=== PATIENT | female | born 1945 | race Caucasian/White ===

== ENCOUNTER → 2016-12-17 | Outpatient (CLI) | payer BC ==
--- NOTE | 2016-12-17 15:58 | MAMMOGRAPHY REPORT ---
BILATERAL DIGITAL SCREENING MAMMOGRAM WITH CAD: 12/17/2016 CLINICAL HISTORY: Routine screening. Patient has no complaints. TECHNIQUE: Bilateral CC and MLO views were obtained. Current study was also evaluated with a Compute r Aided Detection (CAD) system. COMPARISON: Comparison is made to exams dated: 12/05/2015 mammogram, 11/30/2014 mammogram, 11/29/2013 jules mogram, 11/04/2012 mammogram, 11/04/2011 mammogram, and 11/01/2010 mammogram - [facility] . BREAST COMPOSITION: There are scattered areas of fibroglandular density in both breasts. FINDINGS: A linear scar marker overlies the medial right breast. There are minimal vascular calcific ations bilaterally. No suspicious mass, architectural distortion or cluster of microcalcifications i s seen. IMPRESSION: ACR BI-RADS CATEGORY 1: NEGATIVE There is no mammographic evidence of malignancy. A 1 year screening mammogram is recommended. The pa tient will receive written notification of the results. Approximately 10% of breast cancers are not detected with mammography. A negative mammographic report should not delay biopsy if a clinically suggestive mass is present. Odalis Chamberlain M.D. ay/:12/17/2016 14:36:26 Reactor Service Operator: Sanjuana Mccormick, [facility] letter sent: Normal 1/2 BI-RADS Code: ACR BI-RADS Category 1: Negative
== END | disposition home or self-care (01) ==
LOC: C.MAMM 13:53
PROVIDERS: ATTEND Obstetrics & Gynecology
DX: Z12.31 Encounter for screening mammogram for malignant neoplasm of breast (principal)

== ENCOUNTER → 2017-12-19 | Outpatient (CLI) | payer BC ==
--- NOTE | 2017-12-22 07:43 | MAMMOGRAPHY REPORT ---
BILATERAL DIGITAL SCREENING MAMMOGRAM TOMOSYNTHESIS WITH CAD: 12/19/2017 CLINICAL HISTORY: Routine screening. Patient has no complaints. TECHNIQUE: The study was acquired using full field digital technology and interpreted from soft copy. Breast tomosynthesis in addition to standard 2D mammography was performed. Current study was also ev aluated with a Computer Aided Detection (CAD) system. COMPARISON: Comparison is made to exams dated: 12/17/2016 mammogram, 12/05/2015 mammogram, 11/30/2014 jules mogram, 11/29/2013 mammogram, 11/04/2012 mammogram, and 11/04/2011 mammogram - [facility] BREAST COMPOSITION: There are scattered areas of fibroglandular density in both breasts. FINDINGS: No suspicious masses, calcifications, or areas of architectural distortion are noted in either breast . There has been no significant interval change compared to prior exams. IMPRESSION: ACR BI-RADS CATEGORY 1: NEGATIVE There is no mammographic evidence of malignancy. A 1 year screening mammogram is recommended.( 019) The patient will receive written notification of the results. Some breast cancers are not detected with mammography. A negative mammographic report should not vania y biopsy if a clinically suggestive mass is present. Estee Freed M.D. ah/:12/19/2017 14:27:28 [employer] Field Examiner: RT Joel(Nguyễn)(M)(BD), [facility] letter sent: Normal 1/2 BI-RADS Code: ACR BI-RADS Category 1: Negative
== END | disposition home or self-care (01) ==
LOC: C.MAMM 13:14
PROVIDERS: ATTEND Obstetrics & Gynecology
DX: Z12.31 Encounter for screening mammogram for malignant neoplasm of breast (principal)

== ENCOUNTER → 2018-01-13 | Outpatient (CLI) | payer BC | END | disposition home or self-care (01) | LOC: C.MAMM 15:30 | PROVIDERS: ATTEND Nurse Practitioner Family | DX: Z13.820 Encounter for screening for osteoporosis (principal); M85.88 Other specified disorders of bone density and structure, other site; M85.852 Other specified disorders of bone density and structure, left thigh; M85.851 Other specified disorders of bone density and structure, right thigh; E78.2 Mixed hyperlipidemia; E03.8 Other specified hypothyroidism; I34.1 Nonrheumatic mitral (valve) prolapse; Z88.6 Allergy status to analgesic agent; Z88.8 Allergy status to other drugs, medicaments and biological substances ==

== ENCOUNTER → 2018-01-15 | Outpatient (CLI) | payer BC ==
--- NOTE | 2018-01-15 14:19 | DIAGNOSTIC IMAGING REPORT ---
LUMBAR SPINE 2 OR 3 VIEWS CLINICAL HISTORY: 72 years-old Female presenting with LOWER BACK PAIN. TECHNIQUE: Frontal, lateral, and coned in lateral views of the lumbar spine were obtained. COMPARISON: 08/17/2013. FINDINGS: Mild extra curvature of the lumbar spine centered at L3-4. Allowing for scoliotic curvature, vertebral bodies maintain normal height. 16 mm of grade 2 anterolisthesis of L4 on L5, which may be slightly increased from the prior exam, when it measured 13 mm. Intervertebral disc height loss noted at L3-4 through L5-S1. Degenerative changes most advanced at L5-S1, where there is likely mild bilateral osseous neural foraminal narrowing. Bony spurring at the L3-4 neural foramina also suggested. No compression deformity or new subluxation. IMPRESSION: Multilevel degenerative changes similar to prior exam with grade 2 anterolisthesis of L4 on L5 stable to slightly increased from prior. No radiographic evidence of acute osseous injury. Electronically signed by: Sulaiman Caballero M.D. 01/15/2018 2:18 PM Dictated Date/Time: 01/15/2018 2:15 PM
== END | disposition home or self-care (01) ==
LOC: C.RDSM 13:56
PROVIDERS: ATTEND Internal Medicine
DX: M47.816 Spondylosis without myelopathy or radiculopathy, lumbar region (principal); M43.16 Spondylolisthesis, lumbar region; Z88.6 Allergy status to analgesic agent